=== PATIENT | male | born 1945 | race Caucasian/White ===

== ENCOUNTER → 2022-03-22 | Outpatient (CLI) | payer OTHER | LOC: M SOG 09:17 | PROVIDERS: ATTEND Orthopaedic Surgery Adult Reconstructive Orthopaedic Surgery | DX: M17.0 Bilateral primary osteoarthritis of knee (principal); M25.561 Pain in right knee ==

== ENCOUNTER → 2022-04-12 | Outpatient (CLI) | payer OTHER ==
[~2022-04-12] MED LIST: ATEN100T PO; ATOR1TAB21 PO; B-12100010 PO; ECOT81TA5 PO; IRON27TA2 PO; LISI20TA33 PO; VITA1CAP25 PO
== END ==
LOC: M RAD 17:36
PROVIDERS: ATTEND Orthopaedic Surgery Adult Reconstructive Orthopaedic Surgery
DX: M17.0 Bilateral primary osteoarthritis of knee (principal); M16.11 Unilateral primary osteoarthritis, right hip; M19.071 Primary osteoarthritis, right ankle and foot

== ENCOUNTER 2022-04-14 07:54 | Outpatient (RCR) | payer OTHER ==
[2022-04-27] MEDS ORDERED: LISI20TA33 PO (12:21)
[2022-04-27] MEDS ORDERED: ATEN100T PO (12:21)
[2022-04-27] MEDS ORDERED: ASPI-551 PO (12:21)
[2022-04-27] MEDS ORDERED: NAPR-849 PO (12:21)
[2022-04-27] MEDS ORDERED: SENN18TA PO (12:21)
[2022-04-27] MEDS ORDERED: OXYC-517 PO (12:21)
== END 2022-05-01 ==
LOC: M PT 07:54
PROVIDERS: ATTEND Orthopaedic Surgery Adult Reconstructive Orthopaedic Surgery
DX: M25.561 Pain in right knee (principal)

== ENCOUNTER → 2022-04-21 | Outpatient (CLI) | payer OTHER | LOC: M LABSMTC 09:58 | PROVIDERS: ATTEND Anesthesiology | DX: Z01.818 Encounter for other preprocedural examination (principal); Z11.52 Encounter for screening for COVID-19 ==

== ENCOUNTER 2022-04-26 08:42 | Inpatient (IN) | payer OTHER ==
[~2022-04-26] VITALS: Ht 177.8 cm; Wt 121.9 kg
[~2022-04-26 08:42] MED LIST changes: +PREGABALIN 25 MG CAP (LYRICA) PO ONE
[2022-04-26] MEDS ORDERED: LR 1,000 ML IV SCH ×3 (08:55→16:20)
[2022-04-26] MEDS ORDERED: ROPIVA 125MG/EPINEPH 0.25MG/CLONID 40MCG/KETOR 15MG IN NS 50ML SYRINGE PA ONE (10:00)
[2022-04-26] MEDS ORDERED: NAPROXEN 250 MG TAB PO ONE (10:00)
[2022-04-26] MEDS ORDERED: dexameTHASONE 4 MG/ML 1ML VIAL (J1100 PER 1MG) IV ONE (10:00)
[2022-04-26] MEDS ORDERED: NS 1,000 ML IV ONE (10:00)
[2022-04-26] MEDS ORDERED: ACETAMINOPHEN 500 MG TAB PO ONE (10:00)
[2022-04-26] MEDS ORDERED: TRANEXAMIC ACID 100 MG/ML 10ML VIAL As Ordered ONE ×2 (10:11→10:12)
[2022-04-26] MEDS ORDERED: ceFAZolin SOD 2 GM in IV 1 EA IV ONE (11:00)
[2022-04-26] MEDS ORDERED: ceFAZolin SOD 1 GM in D5W MINI-BAG PLUS 50 ML IV ONE (11:00)
[2022-04-26] MEDS ORDERED: fentaNYL 100 MCG/2 ML INJECTION As Ordered ONE (12:14)
[2022-04-26] MEDS ORDERED: MIDAZOLAM INJ 2MG/2ML VIAL (J2250 PER 1MG) As Ordered ONE (12:14)
[2022-04-26] MEDS ORDERED: propofoL 200 MG/20 ML VIAL As Ordered ONE ×3 (12:19→14:30)
[2022-04-26] MEDS ORDERED: ePHEDrine SULFATE 25 MG/5 ML(5MG/ML) SYRINGE As Ordered ONE (12:19)
[2022-04-26] MEDS ORDERED: ONDANSETRON 4MG 2ML VIAL As Ordered ONE (12:19)
[2022-04-26] MEDS ORDERED: oxyCODONE 5MG TAB PO PRN ×3 (15:05→16:30)
[2022-04-26] MEDS ORDERED: ONDANSETRON 4MG 2ML VIAL IV PRN ×2 (15:05→16:20)
[2022-04-26] MEDS ORDERED: fentaNYL 100 MCG/2 ML INJECTION IV PRN (15:05)
[2022-04-26] MEDS ORDERED: MORPHINE 2 MG/ML 1ML VIAL IV PRN (15:05)
[2022-04-26] MEDS ORDERED: hydrALAZINE 20MG/ML 1ML VIAL (J0360 PER 20MG) As Ordered ONE (15:10)
[2022-04-26] MEDS ORDERED: traMADol 50 MG TAB PO PRN (16:20)
[2022-04-26] MEDS ORDERED: SENNA 8.6 MG TAB (SENOKOT) PO PRN (16:30)
[2022-04-26] MEDS ORDERED: hydrALAZINE 20MG/ML 1ML VIAL (J0360 PER 20MG) IV PRN (17:05)
[2022-04-26] MEDS ORDERED: **hydrALAZINE HCL** 25 MG TAB PO PRN (17:30)
[2022-04-26 17:53] VITALS: BP 172/80
[2022-04-26 18:29] LABS: HEMATOCRIT 44.4 % (42.0-52.0); HEMOGLOBIN 15.5 g/dl (13.5-17.5); MEAN CORPUSCULAR HEMOGLOBIN 33.5 pg (27.0-33.0); MEAN CORPUSCULAR HGB CONC 34.9 g/dl (32.0-36.5); MEAN CORPUSCULAR VOLUME 96.1 fl (80.0-96.0); PLATELET COUNT, AUTOMATED 142 10^3/uL (150-450); RED BLOOD COUNT 4.62 10^6/uL (4.30-6.10); WHITE BLOOD COUNT 4.5 10^3/uL (4.0-10.0)
[2022-04-26 18:31] VITALS: BP 169/76
[2022-04-26] MEDS: ceFAZolin SOD 1 GM in D5W MINI-BAG PLUS 50 ML IV SCH (18:51)
[2022-04-26] MEDS: ACETAMINOPHEN TAB 650MG DOSE (2X325MG) PO SCH (18:51)
[2022-04-26 19:00] VITALS: BP 162/75
[2022-04-26 19:28] LABS: ALBUMIN 3.9 GM/DL (3.2-5.2); ALT/SGPT 23 U/L (12-78); BILIRUBIN,TOTAL 0.6 MG/DL (0.2-1.0); BLOOD UREA NITROGEN 11 MG/DL (7-18); CALCIUM LEVEL 9.8 MG/DL (8.8-10.2); CARBON DIOXIDE LEVEL 22 MEQ/L (21-32); CHLORIDE LEVEL 105 MEQ/L (98-107); CREATININE FOR GFR 1.01 MG/DL (0.70-1.30); GLOMERULAR FILTRATION RATE > 60.0 (>42); GLUCOSE, FASTING 182 MG/DL (70-100); POTASSIUM SERUM 4.3 MEQ/L (3.5-5.1); SODIUM LEVEL 137 MEQ/L (136-145)
[2022-04-26] MEDS: ASPIRIN 81MG ENTERIC TABLET PO SCH (20:08)
[2022-04-26] MEDS: DOCUSATE SODIUM 100MG CAPSULE PO SCH (20:08)
[2022-04-26] MEDS: NAPROXEN 250 MG TAB PO SCH (20:09)
[2022-04-26] MEDS: ceFAZolin SOD 2 GM in IV 1 EA IV SCH (20:10)
[2022-04-26 20:20] VITALS: BP 169/76
[2022-04-26 21:08] VITALS: BP 170/77
[2022-04-26 22:04] VITALS: BP 169/77
[2022-04-27] MEDS: ACETAMINOPHEN TAB 650MG DOSE (2X325MG) PO SCH ×4 (00:27→18:03)
[2022-04-27 02:10] VITALS: BP 151/71
[2022-04-27] MEDS: ceFAZolin SOD 1 GM in D5W MINI-BAG PLUS 50 ML IV SCH (02:47)
[2022-04-27] MEDS: ceFAZolin SOD 2 GM in IV 1 EA IV SCH (03:20)
[2022-04-27 05:49] VITALS: BP 155/72
[2022-04-27] MEDS ORDERED: ceFAZolin SOD 2 GM in IV 1 EA IV ONE (06:00)
[2022-04-27 06:27] LABS: HEMATOCRIT 40.3 % (42.0-52.0); MEAN CORPUSCULAR HEMOGLOBIN 33.3 pg (27.0-33.0); MEAN CORPUSCULAR HGB CONC 34.7 g/dl (32.0-36.5); PLATELET COUNT, AUTOMATED 160 10^3/uL (150-450); WHITE BLOOD COUNT 9.8 10^3/uL (4.0-10.0)
[2022-04-27 06:45] LABS: ALBUMIN 3.5 GM/DL (3.2-5.2); ALT/SGPT 16 U/L (12-78); BILIRUBIN,TOTAL 0.5 MG/DL (0.2-1.0); BLOOD UREA NITROGEN 13 MG/DL (7-18); CALCIUM LEVEL 9.6 MG/DL (8.8-10.2); CARBON DIOXIDE LEVEL 25 MEQ/L (21-32); CHLORIDE LEVEL 105 MEQ/L (98-107); CREATININE FOR GFR 0.96 MG/DL (0.70-1.30); GLOMERULAR FILTRATION RATE > 60.0 (>42); GLUCOSE, FASTING 122 MG/DL (70-100); MAGNESIUM LEVEL 2.3 MG/DL (1.8-2.4); POTASSIUM SERUM 4.3 MEQ/L (3.5-5.1); SODIUM LEVEL 138 MEQ/L (136-145); TOTAL PROTEIN 5.9 GM/DL (6.4-8.2)
[2022-04-27] MEDS ORDERED: atenoloL 25 MG TAB PO SCH (09:00)
[2022-04-27] MEDS: DOCUSATE SODIUM 100MG CAPSULE PO SCH ×2 (09:00→20:15)
[2022-04-27] MEDS ORDERED: lisinopriL 5 MG TAB PO SCH (09:00)
[2022-04-27] MEDS ORDERED: ATORVASTATIN 10 MG TAB PO SCH (09:00)
[2022-04-27] MEDS: ENOXAPARIN 40MG/0.4ML SYRINGE (J1650 PER 10MG) SC SCH (09:26)
[2022-04-27] MEDS: ATORVASTATIN 20 MG TAB PO SCH (09:26)
[2022-04-27] MEDS: ASPIRIN 81MG ENTERIC TABLET PO SCH ×2 (09:27→20:14)
[2022-04-27] MEDS: ASCORBIC ACID 500 MG TAB PO SCH (09:27)
[2022-04-27] MEDS: NAPROXEN 250 MG TAB PO SCH ×2 (09:28→20:15)
[2022-04-27] MEDS: atenoloL 50 MG TAB PO SCH (09:31)
[2022-04-27] MEDS: FERROUS SULFATE 325MG TAB PO SCH (09:32)
[2022-04-27 10:00] VITALS: BP 133/59
[2022-04-27] MEDS ORDERED: ATEN100T PO (12:21)
[2022-04-27] MEDS ORDERED: OXYC-517 PO (12:21)
[2022-04-27] MEDS ORDERED: LISI20TA33 PO (12:21)
[2022-04-27] MEDS ORDERED: ASPI-551 PO (12:21)
[2022-04-27] MEDS ORDERED: NAPR-849 PO (12:21)
[2022-04-27] MEDS ORDERED: SENN18TA PO (12:21)
[2022-04-27 14:00] VITALS: BP 132/78
[2022-04-27 22:00] VITALS: BP 120/61
[2022-04-28] MEDS: ACETAMINOPHEN TAB 650MG DOSE (2X325MG) PO SCH ×2 (00:13→06:31)
[2022-04-28 06:00] VITALS: BP 187/87
[2022-04-28] MEDS: ATORVASTATIN 20 MG TAB PO SCH (08:03)
[2022-04-28] MEDS: ASPIRIN 81MG ENTERIC TABLET PO SCH (08:03)
[2022-04-28] MEDS: FERROUS SULFATE 325MG TAB PO SCH (08:04)
[2022-04-28] MEDS: NAPROXEN 250 MG TAB PO SCH (08:04)
[2022-04-28 08:05] VITALS: BP 187/87
[2022-04-28] MEDS: atenoloL 50 MG TAB PO SCH (08:05)
[2022-04-28] MEDS: ASCORBIC ACID 500 MG TAB PO SCH (08:05)
[2022-04-28] MEDS: ENOXAPARIN 40MG/0.4ML SYRINGE (J1650 PER 10MG) SC SCH (08:06)
[2022-04-28] MEDS: DOCUSATE SODIUM 100MG CAPSULE PO SCH (08:06)
== END 2022-04-28 11:00 | disposition home health service (06) | DRG 983 ==
LOC: M SDC 08:42 → M MS5PR 17:14 → M SDC 04-28 11:00
PROVIDERS: ADMIT Family Medicine; ATTEND Family Medicine
PROC: 0LQQ0ZZ Repair Right Knee Tendon, Open Approach (ICD-10-PCS; 2022-04-26)
PROC: 0SBC0ZZ Excision of Right Knee Joint, Open Approach (ICD-10-PCS; 2022-04-26)
PROC: 8E0Y0CZ Robotic Assisted Procedure of Lower Extremity, Open Approach (ICD-10-PCS; 2022-04-26)
PROC: 0SRC0JA Replacement of Right Knee Joint with Synthetic Substitute, Uncemented, Open Approach (ICD-10-PCS; principal; 2022-04-26 10:35)
DX: I16.0 Hypertensive urgency (principal); M17.11 Unilateral primary osteoarthritis, right knee; E78.5 Hyperlipidemia, unspecified; I10 Essential (primary) hypertension; M25.761 Osteophyte, right knee; J30.9 Allergic rhinitis, unspecified; Z96.651 Presence of right artificial knee joint; Z96.649 Presence of unspecified artificial hip joint; Z79.82 Long term (current) use of aspirin; Z79.899 Other long term (current) drug therapy

== ENCOUNTER 2022-05-03 10:45 | Inpatient (IN) | payer MEDICARE, OTHER ==
[~2022-05-03] VITALS: Ht 177.8 cm; Wt 118.1 kg
[~2022-05-03 10:45] MED LIST changes: +ASPI-551 PO; +NAPR-849 PO; +OXYC-517 PO; -PREGABALIN 25 MG CAP (LYRICA) PO ONE; +SENN18TA PO
[2022-05-03] MEDS ORDERED: ACE65ERTAB PO (11:01)
[2022-05-03 13:30] LABS: BASO % 0.3 % (0.0-1.0); EOS # 0.1 10^3/uL (0.0-0.5); EOS % 1.1 % (0.0-3.0); HEMATOCRIT 34.3 % (42.0-52.0); HEMOGLOBIN 11.3 g/dl (13.5-17.5); LYMPH # 1.3 10^3/uL (1.5-5.0); LYMPH % 17.6 % (24.0-44.0); MEAN CORPUSCULAR HEMOGLOBIN 33.3 pg (27.0-33.0); MEAN CORPUSCULAR HGB CONC 32.9 g/dl (32.0-36.5); MEAN CORPUSCULAR VOLUME 101.2 fl (80.0-96.0); MONO # 0.8 10^3/uL (0.0-0.8); MONO % 11.3 % (2.0-8.0); NEUTROPHILS # 5.2 10^3/uL (1.5-8.5); PLATELET COUNT, AUTOMATED 181 10^3/uL (150-450); RED BLOOD COUNT 3.39 10^6/uL (4.30-6.10); WHITE BLOOD COUNT 7.5 10^3/uL (4.0-10.0)
[2022-05-03 14:02] LABS: BLOOD UREA NITROGEN 11 MG/DL (7-18); CALCIUM LEVEL 10.1 MG/DL (8.8-10.2); CARBON DIOXIDE LEVEL 22 MEQ/L (21-32); CHLORIDE LEVEL 110 MEQ/L (98-107); CREATININE FOR GFR 0.76 MG/DL (0.70-1.30); GLOMERULAR FILTRATION RATE > 60.0 (>42); GLUCOSE, FASTING 89 MG/DL (70-100); NT-PRO BNP 1735 PG/ML (<450); SODIUM LEVEL 141 MEQ/L (136-145)
[2022-05-03 14:13] LABS: RSV AMPLIFICATION NEGATIVE (NEGATIVE)
[2022-05-03] MEDS ORDERED: LIDOCAINE 2% 5ML JELLY UROJET TOP ONE (14:40)
[2022-05-03] MEDS ORDERED: cefTRIAXone SOD 1 GM in D5W MINI-BAG PLUS 50 ML IV ONE (15:00)
[2022-05-03] MEDS ORDERED: VANCOMYCIN HCL 1,000 MG, VIAL MATE ADAPTER 1 EACH in NS 250 ML IV SCH (16:25)
[2022-05-03] MEDS ORDERED: MOM 30ML SUSPENSION UDC PO PRN (16:25)
[2022-05-03] MEDS ORDERED: MAALOX 30 ML SUSP *UDC PO PRN (16:25)
[2022-05-03] MEDS ORDERED: ACET-897 PO (16:53)
[2022-05-03] MEDS ORDERED: ASPI-226 PO (16:57)
[2022-05-03] MEDS ORDERED: CHOL125C6 PO (16:57)
[2022-05-03] MEDS ORDERED: HOME MED LIST COMPLETE! XX SCH (17:00)
[2022-05-03] MEDS ORDERED: VANCOMYCIN HCL 1,000 MG, VIAL MATE ADAPTER 1 EACH in NS 250 ML IV ONE ×2 (21:00→22:00)
[2022-05-03 22:03] VITALS: BP 198/86
[2022-05-03] MEDS ORDERED: **hydrALAZINE** 50 MG TAB PO ONE (23:10)
[2022-05-03] MEDS ORDERED: hydrOXYzine 50 MG TAB PO ONE (23:15)
[2022-05-04 00:37] VITALS: BP 178/70
[2022-05-04 06:00] VITALS: BP 154/60
[2022-05-04 06:06] LABS: BASO % 0.3 % (0.0-1.0); EOS # 0.1 10^3/uL (0.0-0.5); EOS % 1.9 % (0.0-3.0); HEMATOCRIT 31.6 % (42.0-52.0); HEMOGLOBIN 10.5 g/dl (13.5-17.5); LYMPH # 1.3 10^3/uL (1.5-5.0); LYMPH % 21.3 % (24.0-44.0); MEAN CORPUSCULAR HEMOGLOBIN 32.9 pg (27.0-33.0); MEAN CORPUSCULAR HGB CONC 33.2 g/dl (32.0-36.5); MEAN CORPUSCULAR VOLUME 99.1 fl (80.0-96.0); MONO # 0.7 10^3/uL (0.0-0.8); MONO % 11.1 % (2.0-8.0); NEUTROPHILS % 64.9 % (36.0-66.0); PLATELET COUNT, AUTOMATED 212 10^3/uL (150-450); RED BLOOD COUNT 3.19 10^6/uL (4.30-6.10); WHITE BLOOD COUNT 6.2 10^3/uL (4.0-10.0)
[2022-05-04 06:35] LABS: ERYTHROCYTE SEDIMENTATION RATE 70 mm/hr (0-20)
[2022-05-04 06:44] LABS: ALBUMIN 2.8 GM/DL (3.2-5.2); ALT/SGPT 18 U/L (12-78); BILIRUBIN,TOTAL 1.5 MG/DL (0.2-1.0); BLOOD UREA NITROGEN 11 MG/DL (7-18); CALCIUM LEVEL 9.4 MG/DL (8.8-10.2); CARBON DIOXIDE LEVEL 27 MEQ/L (21-32); CHLORIDE LEVEL 105 MEQ/L (98-107); GLOMERULAR FILTRATION RATE > 60.0 (>42); GLUCOSE, FASTING 102 MG/DL (70-100); MAGNESIUM LEVEL 2.2 MG/DL (1.8-2.4); SODIUM LEVEL 137 MEQ/L (136-145); TOTAL PROTEIN 6.3 GM/DL (6.4-8.2)
[2022-05-04] MEDS: VANCOMYCIN HCL 750 MG, VIAL MATE ADAPTER 1 EACH in D5W 250 ML IV SCH ×4 (09:15→22:58)
[2022-05-04] MEDS: ASPIRIN 81MG ENTERIC TABLET PO SCH (09:17)
[2022-05-04] MEDS: ATORVASTATIN 20 MG TAB PO SCH (09:17)
[2022-05-04] MEDS: atenoloL 50 MG TAB PO SCH (09:18)
[2022-05-04] MEDS: ENOXAPARIN 40MG/0.4ML SYRINGE (J1650 PER 10MG) SC SCH (09:20)
[2022-05-04] MEDS: ACETAMINOPHEN TAB 650MG DOSE (2X325MG) PO PRN ×2 (09:20→21:25)
[2022-05-04 12:00] VITALS: BP 141/63
[2022-05-04] MEDS: cefTRIAXone SOD 1 GM in D5W MINI-BAG PLUS 50 ML IV SCH (15:23)
[2022-05-04 20:00] VITALS: BP 159/72
[2022-05-05] MEDS ORDERED: PINK BISMUTH SUSP 524MG/30ML ORAL SYRINGE PO ONE (03:00)
[2022-05-05 04:00] VITALS: BP 161/70
[2022-05-05 06:21] LABS: BASO % 0.3 % (0.0-1.0); EOS # 0.1 10^3/uL (0.0-0.5); EOS % 1.8 % (0.0-3.0); HEMATOCRIT 30.6 % (42.0-52.0); HEMOGLOBIN 10.3 g/dl (13.5-17.5); LYMPH # 1.6 10^3/uL (1.5-5.0); LYMPH % 22.3 % (24.0-44.0); MEAN CORPUSCULAR HEMOGLOBIN 32.9 pg (27.0-33.0); MEAN CORPUSCULAR HGB CONC 33.7 g/dl (32.0-36.5); MEAN CORPUSCULAR VOLUME 97.8 fl (80.0-96.0); MONO # 0.6 10^3/uL (0.0-0.8); MONO % 8.2 % (2.0-8.0); NEUTROPHILS # 4.8 10^3/uL (1.5-8.5); NEUTROPHILS % 66.8 % (36.0-66.0); PLATELET COUNT, AUTOMATED 217 10^3/uL (150-450); RED BLOOD COUNT 3.13 10^6/uL (4.30-6.10); WHITE BLOOD COUNT 7.2 10^3/uL (4.0-10.0)
[2022-05-05 06:59] LABS: ALBUMIN 2.8 GM/DL (3.2-5.2); ALT/SGPT 17 U/L (12-78); BILIRUBIN,TOTAL 1.3 MG/DL (0.2-1.0); BLOOD UREA NITROGEN 12 MG/DL (7-18); C REACTIVE PROTEIN QUANTITATIV 9.11 MG/DL (0.00-0.30); CALCIUM LEVEL 9.4 MG/DL (8.8-10.2); CARBON DIOXIDE LEVEL 26 MEQ/L (21-32); CHLORIDE LEVEL 105 MEQ/L (98-107); GLOMERULAR FILTRATION RATE > 60.0 (>42); GLUCOSE, FASTING 96 MG/DL (70-100); MAGNESIUM LEVEL 2.3 MG/DL (1.8-2.4); POTASSIUM SERUM 3.6 MEQ/L (3.5-5.1); SODIUM LEVEL 135 MEQ/L (136-145); TOTAL PROTEIN 6.1 GM/DL (6.4-8.2)
[2022-05-05 09:44] LABS: ERYTHROCYTE SEDIMENTATION RATE 68 mm/hr (0-20)
[2022-05-05] MEDS: ENOXAPARIN 40MG/0.4ML SYRINGE (J1650 PER 10MG) SC SCH (10:04)
[2022-05-05] MEDS: VANCOMYCIN HCL 750 MG, VIAL MATE ADAPTER 1 EACH in D5W 250 ML IV SCH ×2 (10:04→10:05)
[2022-05-05] MEDS: LACTOBACILLUS ACIDOPHILUS CAP (BACID) PO SCH (10:06)
[2022-05-05] MEDS: atenoloL 50 MG TAB PO SCH (10:06)
[2022-05-05] MEDS: ASPIRIN 81MG ENTERIC TABLET PO SCH (10:07)
[2022-05-05] MEDS: ATORVASTATIN 20 MG TAB PO SCH (10:07)
[2022-05-05 12:00] VITALS: BP 181/81
[2022-05-05] MEDS: **hydrALAZINE HCL** 25 MG TAB PO PRN (12:30)
[2022-05-05] MEDS ORDERED: LOPERAMIDE 2 MG CAPLET PO PRN (12:40)
[2022-05-05] MEDS ORDERED: diphenhydrAMINE 25MG CAP PO ONE (12:45)
[2022-05-05] MEDS: HYDROCORTISONE 1% OINTMENT 30GM TOP SCH ×2 (13:18→21:14)
[2022-05-05] MEDS: DOXYCYCLINE HYCLATE 100MG TABLET PO SCH ×2 (13:19→21:14)
[2022-05-05] MEDS: NS 1,000 ML IV SCH ×2 (13:23→22:58)
[2022-05-05 13:59] VITALS: BP 171/72
[2022-05-05] MEDS: cefTRIAXone SOD 1 GM in D5W MINI-BAG PLUS 50 ML IV SCH (15:21)
[2022-05-05 18:20] VITALS: BP 158/67
[2022-05-05 20:00] VITALS: BP 153/67
[2022-05-06 04:00] VITALS: BP 168/72
[2022-05-06] MEDS: **hydrALAZINE HCL** 25 MG TAB PO PRN ×2 (05:31→22:14)
[2022-05-06 06:41] LABS: BASO % 0.2 % (0.0-1.0); EOS # 0.1 10^3/uL (0.0-0.5); EOS % 2.5 % (0.0-3.0); HEMATOCRIT 31.8 % (42.0-52.0); HEMOGLOBIN 10.1 g/dl (13.5-17.5); LYMPH # 1.6 10^3/uL (1.5-5.0); LYMPH % 30.7 % (24.0-44.0); MEAN CORPUSCULAR HEMOGLOBIN 31.8 pg (27.0-33.0); MEAN CORPUSCULAR HGB CONC 31.8 g/dl (32.0-36.5); MONO # 0.5 10^3/uL (0.0-0.8); MONO % 9.5 % (2.0-8.0); NEUTROPHILS % 56.3 % (36.0-66.0); PLATELET COUNT, AUTOMATED 232 10^3/uL (150-450); RED BLOOD COUNT 3.18 10^6/uL (4.30-6.10); WHITE BLOOD COUNT 5.3 10^3/uL (4.0-10.0)
[2022-05-06 07:21] LABS: ALBUMIN 2.8 GM/DL (3.2-5.2); ALT/SGPT 15 U/L (12-78); BILIRUBIN,TOTAL 1.2 MG/DL (0.2-1.0); BLOOD UREA NITROGEN 11 MG/DL (7-18); C REACTIVE PROTEIN QUANTITATIV 7.78 MG/DL (0.00-0.30); CALCIUM LEVEL 8.9 MG/DL (8.8-10.2); CARBON DIOXIDE LEVEL 26 MEQ/L (21-32); CHLORIDE LEVEL 107 MEQ/L (98-107); CREATININE FOR GFR 0.76 MG/DL (0.70-1.30); GLOMERULAR FILTRATION RATE > 60.0 (>42); GLUCOSE, FASTING 87 MG/DL (70-100); MAGNESIUM LEVEL 2.2 MG/DL (1.8-2.4); POTASSIUM SERUM 3.9 MEQ/L (3.5-5.1); SODIUM LEVEL 140 MEQ/L (136-145); TOTAL PROTEIN 5.5 GM/DL (6.4-8.2)
[2022-05-06 07:35] LABS: ERYTHROCYTE SEDIMENTATION RATE 73 mm/hr (0-20)
[2022-05-06] MEDS: HYDROCORTISONE 1% OINTMENT 30GM TOP SCH ×2 (10:00→21:18)
[2022-05-06] MEDS: NS 1,000 ML IV SCH ×2 (10:00→16:58)
[2022-05-06] MEDS: ENOXAPARIN 40MG/0.4ML SYRINGE (J1650 PER 10MG) SC SCH (10:00)
[2022-05-06] MEDS: LACTOBACILLUS ACIDOPHILUS CAP (BACID) PO SCH (10:01)
[2022-05-06] MEDS: ASPIRIN 81MG ENTERIC TABLET PO SCH (10:01)
[2022-05-06] MEDS: ATORVASTATIN 20 MG TAB PO SCH (10:03)
[2022-05-06] MEDS: atenoloL 50 MG TAB PO SCH (10:03)
[2022-05-06] MEDS: DOXYCYCLINE HYCLATE 100MG TABLET PO SCH ×2 (10:03→21:18)
[2022-05-06 12:00] VITALS: BP 158/71
[2022-05-06] MEDS ORDERED: LOMOTIL 2.5MG/0.025MG TABLET PO PRN (12:15)
[2022-05-06] MEDS: NITAZOXANIDE 500 MG TAB (ALINIA) PO SCH ×2 (13:18→21:18)
[2022-05-06] MEDS: cefTRIAXone SOD 1 GM in D5W MINI-BAG PLUS 50 ML IV SCH (14:48)
[2022-05-06] MEDS: TAMSULOSIN 0.4 MG CAP PO SCH (14:48)
[2022-05-06] MEDS: diphenhydrAMINE CREAM 30GM TOP PRN ×2 (17:03→19:54)
[2022-05-06 20:00] VITALS: BP_SYST 184; BP_SYST 214; BP_DIAS 86
[2022-05-06 21:00] VITALS: BP 166/76
[2022-05-06 23:10] VITALS: BP 160/84
[2022-05-06] MEDS: ACETAMINOPHEN TAB 650MG DOSE (2X325MG) PO PRN (23:34)
[2022-05-07] MEDS: NS 1,000 ML IV SCH ×3 (03:33→23:24)
[2022-05-07 04:00] VITALS: BP 196/86
[2022-05-07 06:50] VITALS: BP 162/86
[2022-05-07 07:12] LABS: BASO % 0.2 % (0.0-1.0); EOS # 0.1 10^3/uL (0.0-0.5); EOS % 2.2 % (0.0-3.0); HEMATOCRIT 29.7 % (42.0-52.0); HEMOGLOBIN 9.6 g/dl (13.5-17.5); LYMPH # 1.3 10^3/uL (1.5-5.0); LYMPH % 23.9 % (24.0-44.0); MEAN CORPUSCULAR HGB CONC 32.3 g/dl (32.0-36.5); MONO # 0.5 10^3/uL (0.0-0.8); MONO % 9.1 % (2.0-8.0); NEUTROPHILS # 3.4 10^3/uL (1.5-8.5); NEUTROPHILS % 63.9 % (36.0-66.0); PLATELET COUNT, AUTOMATED 217 10^3/uL (150-450); WHITE BLOOD COUNT 5.4 10^3/uL (4.0-10.0)
[2022-05-07 07:41] LABS: ERYTHROCYTE SEDIMENTATION RATE 73 mm/hr (0-20)
[2022-05-07 07:43] LABS: ALBUMIN 2.6 GM/DL (3.2-5.2); ALT/SGPT 14 U/L (12-78); BLOOD UREA NITROGEN 10 MG/DL (7-18); C REACTIVE PROTEIN QUANTITATIV 5.46 MG/DL (0.00-0.30); CALCIUM LEVEL 9.1 MG/DL (8.8-10.2); CARBON DIOXIDE LEVEL 25 MEQ/L (21-32); CHLORIDE LEVEL 108 MEQ/L (98-107); CREATININE FOR GFR 0.66 MG/DL (0.70-1.30); GLOMERULAR FILTRATION RATE > 60.0 (>42); GLUCOSE, FASTING 99 MG/DL (70-100); MAGNESIUM LEVEL 2.2 MG/DL (1.8-2.4); POTASSIUM SERUM 3.5 MEQ/L (3.5-5.1); SODIUM LEVEL 138 MEQ/L (136-145); TOTAL PROTEIN 5.7 GM/DL (6.4-8.2)
[2022-05-07] MEDS: NITAZOXANIDE 500 MG TAB (ALINIA) PO SCH ×2 (09:27→20:32)
[2022-05-07] MEDS: LACTOBACILLUS ACIDOPHILUS CAP (BACID) PO SCH (09:28)
[2022-05-07] MEDS: ASPIRIN 81MG ENTERIC TABLET PO SCH (09:28)
[2022-05-07] MEDS: TAMSULOSIN 0.4 MG CAP PO SCH (09:28)
[2022-05-07] MEDS: CHLORTHALIDONE 25 MG TAB PO SCH (09:29)
[2022-05-07] MEDS: ATORVASTATIN 20 MG TAB PO SCH (09:29)
[2022-05-07] MEDS: atenoloL 50 MG TAB PO SCH (09:32)
[2022-05-07] MEDS: DOXYCYCLINE HYCLATE 100MG TABLET PO SCH ×2 (09:32→20:32)
[2022-05-07] MEDS: ENOXAPARIN 40MG/0.4ML SYRINGE (J1650 PER 10MG) SC SCH (09:33)
[2022-05-07] MEDS: HYDROCORTISONE 1% OINTMENT 30GM TOP SCH ×2 (09:33→20:33)
[2022-05-07 12:00] VITALS: BP 137/63
[2022-05-07] MEDS: cefTRIAXone SOD 1 GM in D5W MINI-BAG PLUS 50 ML IV SCH (15:11)
[2022-05-07 20:00] VITALS: BP 157/70
[2022-05-08 04:00] VITALS: BP 175/74
[2022-05-08] MEDS: **hydrALAZINE HCL** 25 MG TAB PO PRN (05:16)
[2022-05-08 06:13] VITALS: BP 174/74
[2022-05-08 07:26] LABS: BASO % 0.3 % (0.0-1.0); EOS # 0.1 10^3/uL (0.0-0.5); EOS % 2.2 % (0.0-3.0); HEMATOCRIT 31.9 % (42.0-52.0); HEMOGLOBIN 10.4 g/dl (13.5-17.5); LYMPH # 1.3 10^3/uL (1.5-5.0); LYMPH % 21.9 % (24.0-44.0); MEAN CORPUSCULAR HEMOGLOBIN 31.7 pg (27.0-33.0); MEAN CORPUSCULAR HGB CONC 32.6 g/dl (32.0-36.5); MEAN CORPUSCULAR VOLUME 97.3 fl (80.0-96.0); MONO # 0.5 10^3/uL (0.0-0.8); MONO % 8.1 % (2.0-8.0); PLATELET COUNT, AUTOMATED 233 10^3/uL (150-450); RED BLOOD COUNT 3.28 10^6/uL (4.30-6.10); WHITE BLOOD COUNT 5.9 10^3/uL (4.0-10.0)
[2022-05-08 08:10] LABS: ALBUMIN 2.9 GM/DL (3.2-5.2); ALT/SGPT 15 U/L (12-78); BILIRUBIN,TOTAL 0.9 MG/DL (0.2-1.0); BLOOD UREA NITROGEN 8 MG/DL (7-18); CALCIUM LEVEL 9.3 MG/DL (8.8-10.2); CARBON DIOXIDE LEVEL 26 MEQ/L (21-32); CHLORIDE LEVEL 107 MEQ/L (98-107); CREATININE FOR GFR 0.67 MG/DL (0.70-1.30); GLOMERULAR FILTRATION RATE > 60.0 (>42); GLUCOSE, FASTING 101 MG/DL (70-100); MAGNESIUM LEVEL 2.2 MG/DL (1.8-2.4); POTASSIUM SERUM 3.9 MEQ/L (3.5-5.1); SODIUM LEVEL 139 MEQ/L (136-145); TOTAL PROTEIN 5.4 GM/DL (6.4-8.2)
[2022-05-08] MEDS: LACTOBACILLUS ACIDOPHILUS CAP (BACID) PO SCH (09:43)
[2022-05-08] MEDS: ASPIRIN 81MG ENTERIC TABLET PO SCH (09:43)
[2022-05-08] MEDS: ATORVASTATIN 20 MG TAB PO SCH (09:43)
[2022-05-08] MEDS: DOXYCYCLINE HYCLATE 100MG TABLET PO SCH ×2 (09:43→21:15)
[2022-05-08] MEDS: atenoloL 50 MG TAB PO SCH (09:43)
[2022-05-08] MEDS: NITAZOXANIDE 500 MG TAB (ALINIA) PO SCH ×2 (09:43→21:15)
[2022-05-08] MEDS: TAMSULOSIN 0.4 MG CAP PO SCH (09:43)
[2022-05-08] MEDS: CHLORTHALIDONE 25 MG TAB PO SCH (09:43)
[2022-05-08] MEDS: NS 1,000 ML IV SCH ×2 (09:44→21:15)
[2022-05-08] MEDS: ENOXAPARIN 40MG/0.4ML SYRINGE (J1650 PER 10MG) SC SCH (09:44)
[2022-05-08] MEDS: HYDROCORTISONE 1% OINTMENT 30GM TOP SCH ×2 (09:45→21:15)
[2022-05-08 12:02] VITALS: BP 158/70
[2022-05-08] MEDS: LOPERAMIDE 2 MG CAPLET PO PRN (15:56)
[2022-05-08] MEDS: cefTRIAXone SOD 1 GM in D5W MINI-BAG PLUS 50 ML IV SCH (15:56)
[2022-05-08 20:00] VITALS: BP 162/76
[2022-05-08] MEDS: CEFDINIR 300 MG CAP (OMNICEF) PO SCH (21:15)
[2022-05-09 04:00] VITALS: BP 162/96
[2022-05-09 06:24] LABS: BASO % 0.2 % (0.0-1.0); EOS # 0.1 10^3/uL (0.0-0.5); HEMOGLOBIN 10.3 g/dl (13.5-17.5); LYMPH % 18.6 % (24.0-44.0); MEAN CORPUSCULAR HEMOGLOBIN 31.2 pg (27.0-33.0); MEAN CORPUSCULAR HGB CONC 32.2 g/dl (32.0-36.5); MONO # 0.4 10^3/uL (0.0-0.8); MONO % 7.7 % (2.0-8.0); NEUTROPHILS % 70.4 % (36.0-66.0); PLATELET COUNT, AUTOMATED 247 10^3/uL (150-450); WHITE BLOOD COUNT 5.6 10^3/uL (4.0-10.0)
[2022-05-09 07:08] LABS: ALBUMIN 2.9 GM/DL (3.2-5.2); ALT/SGPT 17 U/L (12-78); BLOOD UREA NITROGEN 9 MG/DL (7-18); CALCIUM LEVEL 9.7 MG/DL (8.8-10.2); CARBON DIOXIDE LEVEL 26 MEQ/L (21-32); CHLORIDE LEVEL 105 MEQ/L (98-107); CREATININE FOR GFR 0.71 MG/DL (0.70-1.30); GLOMERULAR FILTRATION RATE > 60.0 (>42); GLUCOSE, FASTING 99 MG/DL (70-100); MAGNESIUM LEVEL 2.2 MG/DL (1.8-2.4); POTASSIUM SERUM 3.2 MEQ/L (3.5-5.1); SODIUM LEVEL 137 MEQ/L (136-145)
[2022-05-09] MEDS: LACTOBACILLUS ACIDOPHILUS CAP (BACID) PO SCH (07:42)
[2022-05-09] MEDS: CEFDINIR 300 MG CAP (OMNICEF) PO SCH ×2 (07:42→22:45)
[2022-05-09] MEDS: ASPIRIN 81MG ENTERIC TABLET PO SCH (07:42)
[2022-05-09] MEDS: ACETAMINOPHEN TAB 650MG DOSE (2X325MG) PO PRN (07:42)
[2022-05-09] MEDS: NS 1,000 ML IV SCH (07:43)
[2022-05-09] MEDS: DOXYCYCLINE HYCLATE 100MG TABLET PO SCH ×2 (07:43→22:45)
[2022-05-09] MEDS: CHLORTHALIDONE 25 MG TAB PO SCH (07:43)
[2022-05-09] MEDS: TAMSULOSIN 0.4 MG CAP PO SCH (07:43)
[2022-05-09] MEDS: ATORVASTATIN 20 MG TAB PO SCH (07:43)
[2022-05-09] MEDS: ENOXAPARIN 40MG/0.4ML SYRINGE (J1650 PER 10MG) SC SCH (07:43)
[2022-05-09] MEDS: HYDROCORTISONE 1% OINTMENT 30GM TOP SCH ×2 (07:45→22:45)
[2022-05-09] MEDS: POTASSIUM CHLORIDE 10MEQ SR TABLET PO SCH (11:13)
[2022-05-09] MEDS: atenoloL 50 MG TAB PO SCH (11:14)
[2022-05-09] MEDS ORDERED: POTASSIUM CHLORIDE 10MEQ SR TABLET PO ONE (12:00)
[2022-05-09 14:01] VITALS: BP 160/71
[2022-05-09 20:00] VITALS: BP 142/58
[2022-05-10 03:35] VITALS: BP 146/78
[2022-05-10] MEDS: LOPERAMIDE 2 MG CAPLET PO PRN (04:23)
[2022-05-10 05:59] LABS: BASO % 0.7 % (0.0-1.0); EOS # 0.1 10^3/uL (0.0-0.5); EOS % 1.9 % (0.0-3.0); HEMATOCRIT 32.5 % (42.0-52.0); HEMOGLOBIN 10.9 g/dl (13.5-17.5); LYMPH # 1.2 10^3/uL (1.5-5.0); LYMPH % 20.8 % (24.0-44.0); MEAN CORPUSCULAR HEMOGLOBIN 32.7 pg (27.0-33.0); MEAN CORPUSCULAR HGB CONC 33.5 g/dl (32.0-36.5); MEAN CORPUSCULAR VOLUME 97.6 fl (80.0-96.0); MONO # 0.6 10^3/uL (0.0-0.8); MONO % 10.8 % (2.0-8.0); NEUTROPHILS # 3.9 10^3/uL (1.5-8.5); NEUTROPHILS % 65.1 % (36.0-66.0); PLATELET COUNT, AUTOMATED 260 10^3/uL (150-450); RED BLOOD COUNT 3.33 10^6/uL (4.30-6.10); WHITE BLOOD COUNT 5.9 10^3/uL (4.0-10.0)
[2022-05-10 06:42] LABS: ALBUMIN 3.1 GM/DL (3.2-5.2); ALT/SGPT 25 U/L (12-78); BLOOD UREA NITROGEN 12 MG/DL (7-18); CALCIUM LEVEL 10.3 MG/DL (8.8-10.2); CARBON DIOXIDE LEVEL 25 MEQ/L (21-32); CHLORIDE LEVEL 106 MEQ/L (98-107); GLOMERULAR FILTRATION RATE > 60.0 (>42); GLUCOSE, FASTING 97 MG/DL (70-100); POTASSIUM SERUM 4.1 MEQ/L (3.5-5.1); SODIUM LEVEL 137 MEQ/L (136-145); TOTAL PROTEIN 6.5 GM/DL (6.4-8.2)
[2022-05-10] MEDS: ASPIRIN 81MG ENTERIC TABLET PO SCH (08:47)
[2022-05-10] MEDS: CEFDINIR 300 MG CAP (OMNICEF) PO SCH (08:47)
[2022-05-10] MEDS: LACTOBACILLUS ACIDOPHILUS CAP (BACID) PO SCH (08:48)
[2022-05-10] MEDS: ENOXAPARIN 40MG/0.4ML SYRINGE (J1650 PER 10MG) SC SCH (08:48)
[2022-05-10] MEDS: ATORVASTATIN 20 MG TAB PO SCH (08:48)
[2022-05-10] MEDS: TAMSULOSIN 0.4 MG CAP PO SCH (08:48)
[2022-05-10] MEDS: CHLORTHALIDONE 25 MG TAB PO SCH (08:48)
[2022-05-10] MEDS: DOXYCYCLINE HYCLATE 100MG TABLET PO SCH ×2 (08:48→20:54)
[2022-05-10] MEDS: POTASSIUM CHLORIDE 10MEQ SR TABLET PO SCH (08:48)
[2022-05-10] MEDS: HYDROCORTISONE 1% OINTMENT 30GM TOP SCH ×2 (08:49→20:54)
[2022-05-10] MEDS: atenoloL 50 MG TAB PO SCH (08:52)
[2022-05-10 12:00] VITALS: BP 155/68
[2022-05-10 16:45] VITALS: BP 161/75
[2022-05-10] MEDS ORDERED: CEFD300CAP PO (18:34)
[2022-05-10] MEDS ORDERED: LOPE2CA PO (18:34)
[2022-05-10] MEDS ORDERED: DOXY100T PO (18:34)
[2022-05-10] MEDS ORDERED: FLOM0.4C39 PO (18:34)
[2022-05-10] MEDS ORDERED: HYDR1OIN12 TOP (18:35)
[2022-05-10 22:00] VITALS: BP 138/61
[2022-05-11 06:00] VITALS: BP 158/65
[2022-05-11] MEDS: POTASSIUM CHLORIDE 10MEQ SR TABLET PO SCH (08:17)
[2022-05-11] MEDS: ATORVASTATIN 20 MG TAB PO SCH (08:17)
[2022-05-11] MEDS: atenoloL 50 MG TAB PO SCH (08:18)
[2022-05-11] MEDS: LACTOBACILLUS ACIDOPHILUS CAP (BACID) PO SCH (08:18)
[2022-05-11] MEDS: DOXYCYCLINE HYCLATE 100MG TABLET PO SCH ×2 (08:18→21:26)
[2022-05-11] MEDS: CHLORTHALIDONE 25 MG TAB PO SCH (08:18)
[2022-05-11] MEDS: TAMSULOSIN 0.4 MG CAP PO SCH (08:18)
[2022-05-11] MEDS: ASPIRIN 81MG ENTERIC TABLET PO SCH (08:19)
[2022-05-11] MEDS: ENOXAPARIN 40MG/0.4ML SYRINGE (J1650 PER 10MG) SC SCH (08:19)
[2022-05-11] MEDS: HYDROCORTISONE 1% OINTMENT 30GM TOP SCH ×2 (08:19→21:26)
[2022-05-11 08:49] LABS: HEMATOCRIT 34.5 % (42.0-52.0); HEMOGLOBIN 11.4 g/dl (13.5-17.5); MEAN CORPUSCULAR HEMOGLOBIN 31.8 pg (27.0-33.0); MEAN CORPUSCULAR VOLUME 96.4 fl (80.0-96.0); PLATELET COUNT, AUTOMATED 307 10^3/uL (150-450); RED BLOOD COUNT 3.58 10^6/uL (4.30-6.10); WHITE BLOOD COUNT 6.6 10^3/uL (4.0-10.0)
[2022-05-11 09:31] LABS: ALBUMIN 3.2 GM/DL (3.2-5.2); ALT/SGPT 29 U/L (12-78); BLOOD UREA NITROGEN 18 MG/DL (7-18); CALCIUM LEVEL 10.1 MG/DL (8.8-10.2); CARBON DIOXIDE LEVEL 27 MEQ/L (21-32); CHLORIDE LEVEL 101 MEQ/L (98-107); CREATININE FOR GFR 0.95 MG/DL (0.70-1.30); GLOMERULAR FILTRATION RATE > 60.0 (>42); GLUCOSE, FASTING 117 MG/DL (70-100); POTASSIUM SERUM 3.8 MEQ/L (3.5-5.1); SODIUM LEVEL 135 MEQ/L (136-145); TOTAL PROTEIN 6.2 GM/DL (6.4-8.2)
[2022-05-11 14:00] VITALS: BP 148/62
[2022-05-11 21:14] VITALS: BP 166/78
[2022-05-11] MEDS: LOPERAMIDE 2 MG CAPLET PO PRN (21:26)
[2022-05-12 06:50] VITALS: BP 169/76
[2022-05-12 08:00] VITALS: BP 134/47
[2022-05-12] MEDS: ENOXAPARIN 40MG/0.4ML SYRINGE (J1650 PER 10MG) SC SCH (09:23)
[2022-05-12] MEDS: POTASSIUM CHLORIDE 10MEQ SR TABLET PO SCH (09:24)
[2022-05-12] MEDS: ATORVASTATIN 20 MG TAB PO SCH (09:24)
[2022-05-12] MEDS: lisinopriL 40MG TAB PO SCH (09:26)
[2022-05-12] MEDS: atenoloL 50 MG TAB PO SCH (09:26)
[2022-05-12] MEDS: ASPIRIN 81MG ENTERIC TABLET PO SCH (09:26)
[2022-05-12] MEDS: LOPERAMIDE 2 MG CAPLET PO PRN ×3 (09:27→20:41)
[2022-05-12] MEDS: ACETAMINOPHEN TAB 650MG DOSE (2X325MG) PO PRN ×2 (09:27→16:26)
[2022-05-12] MEDS: LACTOBACILLUS ACIDOPHILUS CAP (BACID) PO SCH (09:27)
[2022-05-12] MEDS: DOXYCYCLINE HYCLATE 100MG TABLET PO SCH ×2 (09:28→20:39)
[2022-05-12] MEDS: CHLORTHALIDONE 25 MG TAB PO SCH (09:28)
[2022-05-12] MEDS: TAMSULOSIN 0.4 MG CAP PO SCH (09:28)
[2022-05-12] MEDS ORDERED: LISI40TA4 PO (13:21)
[2022-05-12] MEDS ORDERED: CEFD300CAP PO (13:21)
[2022-05-12] MEDS ORDERED: DOXY100T PO (13:21)
[2022-05-12 14:28] VITALS: BP 110/58
[2022-05-13] MEDS: LOPERAMIDE 2 MG CAPLET PO PRN (04:07)
[2022-05-13 06:39] VITALS: BP 168/69
[2022-05-13 07:03] LABS: HEMATOCRIT 32.4 % (42.0-52.0); HEMOGLOBIN 10.9 g/dl (13.5-17.5); MEAN CORPUSCULAR HEMOGLOBIN 32.5 pg (27.0-33.0); MEAN CORPUSCULAR HGB CONC 33.6 g/dl (32.0-36.5); MEAN CORPUSCULAR VOLUME 96.7 fl (80.0-96.0); PLATELET COUNT, AUTOMATED 306 10^3/uL (150-450); RED BLOOD COUNT 3.35 10^6/uL (4.30-6.10); WHITE BLOOD COUNT 5.8 10^3/uL (4.0-10.0)
[2022-05-13 07:43] LABS: ALBUMIN 3.2 GM/DL (3.2-5.2); ALT/SGPT 25 U/L (12-78); BLOOD UREA NITROGEN 30 MG/DL (7-18); CALCIUM LEVEL 9.9 MG/DL (8.8-10.2); CARBON DIOXIDE LEVEL 25 MEQ/L (21-32); CHLORIDE LEVEL 105 MEQ/L (98-107); CREATININE FOR GFR 1.21 MG/DL (0.70-1.30); GLOMERULAR FILTRATION RATE > 60.0 (>42); GLUCOSE, FASTING 97 MG/DL (70-100); MAGNESIUM LEVEL 2.1 MG/DL (1.8-2.4); POTASSIUM SERUM 4.5 MEQ/L (3.5-5.1); SODIUM LEVEL 136 MEQ/L (136-145)
[2022-05-13] MEDS: CHLORTHALIDONE 25 MG TAB PO SCH (09:00)
[2022-05-13] MEDS: ASPIRIN 81MG ENTERIC TABLET PO SCH (09:29)
[2022-05-13] MEDS: ENOXAPARIN 40MG/0.4ML SYRINGE (J1650 PER 10MG) SC SCH (09:29)
[2022-05-13] MEDS: LACTOBACILLUS ACIDOPHILUS CAP (BACID) PO SCH (09:29)
[2022-05-13] MEDS: TAMSULOSIN 0.4 MG CAP PO SCH (09:29)
[2022-05-13] MEDS: POTASSIUM CHLORIDE 10MEQ SR TABLET PO SCH (09:29)
[2022-05-13] MEDS: ATORVASTATIN 20 MG TAB PO SCH (09:30)
[2022-05-13] MEDS: lisinopriL 40MG TAB PO SCH (09:32)
[2022-05-13 09:33] VITALS: BP 134/54
[2022-05-13] MEDS: atenoloL 50 MG TAB PO SCH (09:33)
== END 2022-05-13 15:35 | disposition home health service (06) | DRG 603 ==
LOC: M ED 10:45 → M ED INP 16:21 → ENRESERV 19:47 → M 4MAIN 22:11 → M MS5PR 05-10 16:35
PROVIDERS: ADMIT Family Medicine; ATTEND Family Medicine
DX: L03.115 Cellulitis of right lower limb (principal); A07.2 Cryptosporidiosis; I16.0 Hypertensive urgency; I10 Essential (primary) hypertension; E78.5 Hyperlipidemia, unspecified; J30.9 Allergic rhinitis, unspecified; L27.0 Generalized skin eruption due to drugs and medicaments taken internally; T36.8X5A Adverse effect of other systemic antibiotics, initial encounter; R33.9 Retention of urine, unspecified; Z96.649 Presence of unspecified artificial hip joint; Z96.651 Presence of right artificial knee joint; Z87.891 Personal history of nicotine dependence; Z79.82 Long term (current) use of aspirin; Z79.899 Other long term (current) drug therapy

== ENCOUNTER 2024-04-06 16:52 | Inpatient (IN) | payer OTHER, MEDICARE ==
[~2024-04-06] VITALS: Ht 177.8 cm; Wt 109.9 kg
[~2024-04-06 16:52] MED LIST changes: +ACE65ERTAB PO; +ACET-897 PO; +ASPI-226 PO; +CEFD300CAP PO; +CHOL125C6 PO; +DOXY100T PO; +FLOM0.4C39 PO; +HYDR1OIN12 TOP; +LISI40TA4 PO; +LOPE2CA PO; +SENN-111 PO; -SENN18TA PO
[2024-04-06 22:33] LABS: BASO % 0.5 % (0.0-1.0); EOS % 0.5 % (0.0-3.0); HEMATOCRIT 45.2 % (42.0-52.0); HEMOGLOBIN 15.8 g/dl (13.5-17.5); LYMPH # 1.7 10^3/uL (1.5-5.0); LYMPH % 27.6 % (24.0-44.0); MEAN CORPUSCULAR HEMOGLOBIN 32.8 pg (27.0-33.0); MONO # 0.6 10^3/uL (0.0-0.8); MONO % 9.8 % (2.0-8.0); NEUTROPHILS # 3.7 10^3/uL (1.5-8.5); NEUTROPHILS % 61.3 % (36.0-66.0); PLATELET COUNT, AUTOMATED 195 10^3/uL (150-450); RED BLOOD COUNT 4.81 10^6/uL (4.30-6.10)
[2024-04-06 23:06] LABS: BLOOD UREA NITROGEN 21 MG/DL (9-23); CALCIUM LEVEL 10.4 MG/DL (8.3-10.6); CARBON DIOXIDE LEVEL 25 MMOL/L (20-31); CHLORIDE LEVEL 96 MMOL/L (98-107); CREATININE FOR GFR 1.16 MG/DL (0.70-1.30); GLOMERULAR FILTRATION RATE > 60.0 (>42); GLUCOSE, FASTING 94 MG/DL (74-106); MAGNESIUM LEVEL 2.2 MG/DL (1.8-2.4); POTASSIUM SERUM 4.5 MMOL/L (3.5-5.1); SODIUM LEVEL 128 MMOL/L (136-145)
[2024-04-06 23:35] LABS: OSMOLALITY SERUM 303 MOSM/KG (280-301)
[2024-04-06 23:41] LABS: THYROID STIMULATING HORMONE 3.184 uIU/ML (0.55-4.78)
[2024-04-06] MEDS ORDERED: LISI20TA33 PO ×2 (23:43)
[2024-04-06] MEDS ORDERED: BISO10TA14 PO (23:43)
[2024-04-06] MEDS ORDERED: CHLO125TA PO (23:43)
[2024-04-06] MEDS ORDERED: HOME MED LIST COMPLETE! XX SCH (23:45)
[2024-04-07] VITALS (8 sets, daily range): BP systolic 137–201; BP diastolic 67–105; TEMP 97.9–98.6; O2SAT 96–100
[2024-04-07] MEDS ORDERED: MAALOX 30 ML SUSP *UDC PO PRN (00:15)
[2024-04-07] MEDS ORDERED: MOM 30ML SUSPENSION UDC PO PRN (00:15)
[2024-04-07 01:14] LABS: INR 1.09; PARTIAL THROMBOPLASTIN TIME 26.8 SECONDS (24.8-34.2); PROTHROMBIN TIME 13.8 SECONDS (12.5-14.5)
[2024-04-07] MEDS: hydrALAZINE 20MG/ML 1ML VIAL IV STA (06:54)
[2024-04-07] MEDS: DOCUSATE SODIUM 100MG CAPSULE PO SCH (08:16)
[2024-04-07] MEDS: HEPARIN SOD (PORCINE) 5000UNITS/ML 1ML VIAL/SYRINGE SC SCH (08:20)
[2024-04-07 09:44] LABS: BASO % 0.3 % (0.0-1.0); EOS % 0.5 % (0.0-3.0); HEMATOCRIT 44.4 % (42.0-52.0); HEMOGLOBIN 15.6 g/dl (13.5-17.5); LYMPH # 0.9 10^3/uL (1.5-5.0); LYMPH % 22.3 % (24.0-44.0); MEAN CORPUSCULAR HEMOGLOBIN 32.7 pg (27.0-33.0); MEAN CORPUSCULAR HGB CONC 35.1 g/dl (32.0-36.5); MEAN CORPUSCULAR VOLUME 93.1 fl (80.0-96.0); MONO # 0.4 10^3/uL (0.0-0.8); MONO % 9.5 % (2.0-8.0); NEUTROPHILS # 2.7 10^3/uL (1.5-8.5); NEUTROPHILS % 67.1 % (36.0-66.0); PLATELET COUNT, AUTOMATED 169 10^3/uL (150-450); RED BLOOD COUNT 4.77 10^6/uL (4.30-6.10)
[2024-04-07] MEDS: bisoproloL fumarate 10 MG TAB PO SCH (10:03)
[2024-04-07 10:07] LABS: ALBUMIN 4.4 G/DL (3.2-5.2); ALKALINE PHOSPHATASE 74 U/L (46-116); ALT/SGPT 18 U/L (7.0-40); AST/SGOT 17 U/L (<34); BILIRUBIN,TOTAL 1.2 MG/DL (0.3-1.2); BLOOD UREA NITROGEN 18 MG/DL (9-23); CALCIUM LEVEL 10.4 MG/DL (8.3-10.6); CARBON DIOXIDE LEVEL 24 MMOL/L (20-31); CHLORIDE LEVEL 97 MMOL/L (98-107); CREATININE FOR GFR 1.04 MG/DL (0.70-1.30); GLOMERULAR FILTRATION RATE > 60.0 (>42); GLUCOSE, FASTING 104 MG/DL (74-106); SODIUM LEVEL 128 MMOL/L (136-145)
[2024-04-07 10:16] LABS: OSMOLALITY URINE 400 MOSM/KG (50-1400)
[2024-04-07 10:35] LABS: SODIUM,RANDOM URINE 113 MMOL/L
[2024-04-07] MEDS: NS 1,000 ML IV SCH (11:38)
[2024-04-07 11:48] LABS: VITAMIN B12 LEVEL 768 PG/ML (211-911)
[2024-04-07] MEDS: **hydrALAZINE HCL** 25 MG TAB PO PRN (17:02)
[2024-04-07] MEDS: amLODIPine 5 MG TAB PO SCH (20:30)
[2024-04-07] MEDS: APIXABAN 5 MG TAB (ELIQUIS) PO SCH (20:30)
[2024-04-07] MEDS: ACETAMINOPHEN TAB 650MG DOSE (2X325MG) PO PRN (23:22)
[2024-04-08] VITALS (23 sets, daily range): BP systolic 102–180; BP diastolic 53–77; TEMP 97.2–97.6; O2SAT 94–99
[2024-04-08 00:43] LABS: BLOOD UREA NITROGEN 18 MG/DL (9-23); CALCIUM LEVEL 9.7 MG/DL (8.3-10.6); CARBON DIOXIDE LEVEL 27 MMOL/L (20-31); CHLORIDE LEVEL 98 MMOL/L (98-107); CREATININE FOR GFR 1.16 MG/DL (0.70-1.30); GLOMERULAR FILTRATION RATE > 60.0 (>42); GLUCOSE, FASTING 97 MG/DL (74-106); POTASSIUM SERUM 4.2 MMOL/L (3.5-5.1); SODIUM LEVEL 129 MMOL/L (136-145)
[2024-04-08 06:21] LABS: HEMATOCRIT 41.7 % (42.0-52.0); HEMOGLOBIN 14.3 g/dl (13.5-17.5); MEAN CORPUSCULAR HEMOGLOBIN 32.6 pg (27.0-33.0); MEAN CORPUSCULAR HGB CONC 34.3 g/dl (32.0-36.5); MEAN CORPUSCULAR VOLUME 95.2 fl (80.0-96.0); PLATELET COUNT, AUTOMATED 165 10^3/uL (150-450); RED BLOOD COUNT 4.38 10^6/uL (4.30-6.10); WHITE BLOOD COUNT 4.5 10^3/uL (4.0-10.0)
[2024-04-08 06:48] LABS: PROCALCITONIN 0.04 ng/ml
[2024-04-08 06:50] LABS: ALBUMIN 3.7 G/DL (3.2-5.2); ALKALINE PHOSPHATASE 67 U/L (46-116); ALT/SGPT 14 U/L (7.0-40); AST/SGOT 14 U/L (<34); BILIRUBIN,TOTAL 1.1 MG/DL (0.3-1.2); BLOOD UREA NITROGEN 18 MG/DL (9-23); CALCIUM LEVEL 9.6 MG/DL (8.3-10.6); CARBON DIOXIDE LEVEL 26 MMOL/L (20-31); CHLORIDE LEVEL 99 MMOL/L (98-107); CHOLESTEROL LEVEL 142 MG/DL (<200); CHOLESTEROL RISK RATIO 4.32 (<5); CREATININE FOR GFR 1.19 MG/DL (0.70-1.30); GLOMERULAR FILTRATION RATE > 60.0 (>42); GLUCOSE, FASTING 91 MG/DL (74-106); HDL CHOLESTEROL 32.8 MG/DL (>40); MAGNESIUM LEVEL 1.8 MG/DL (1.8-2.4); NON-HDL-C 109.2 MG/DL; POTASSIUM SERUM 4.2 MMOL/L (3.5-5.1); SODIUM LEVEL 130 MMOL/L (136-145); TRIGLYCERIDES LEVEL 96 MG/DL (<150)
[2024-04-08] MEDS ORDERED: lisinopriL 40MG TAB PO SCH (09:00)
[2024-04-08] MEDS: **hydrALAZINE HCL** 25 MG TAB PO SCH (09:25)
[2024-04-08 11:13] LABS: APPEARANCE, URINE HAZY (CLEAR); BACTERIA, URINE AUTO NEGATIVE (NEGATIVE); BILIRUBIN, URINE AUTO NEGATIVE (NEGATIVE); BLOOD, URINE BLOOD NEGATIVE (NEGATIVE); COLOR, URINE YELLOW (YELLOW); GLUCOSE, URINE (UA) AUTO NEGATIVE (NEGATIVE); KETONE, URINE AUTO NEGATIVE (NEGATIVE); LEUKOCYTE ESTERASE, URINE AUTO NEGATIVE (NEGATIVE); NITRITE, URINE AUTO NEGATIVE (NEGATIVE); PROTEIN, URINE AUTO NEGATIVE (NEGATIVE); RBC, URINE AUTO 50 /HPF (0-3); SPECIFIC GRAVITY URINE AUTO 1.011 (1.002-1.035); SQUAMOUS EPITHELIAL CELL UR AU 0 /HPF (0-6); UROBILINOGEN, URINE AUTO 0.2 mg/dL (0.0-2.0); WBC, URINE AUTO 1 /HPF (0-3)
[2024-04-08] MEDS: **hydrALAZINE HCL** 25 MG TAB PO ONE (13:22)
[2024-04-09] VITALS (32 sets, daily range): BP systolic 130–198; BP diastolic 64–84; TEMP 97.1–98.1; O2SAT 90–99
[2024-04-09 03:27] LABS: PROTEIN, TOTAL SO 7.4 g/dL (6.1-8.1)
[2024-04-09 06:13] LABS: BASO % 0.4 % (0.0-1.0); EOS % 0.6 % (0.0-3.0); HEMATOCRIT 42.7 % (42.0-52.0); LYMPH # 1.1 10^3/uL (1.5-5.0); LYMPH % 23.8 % (24.0-44.0); MEAN CORPUSCULAR HGB CONC 35.1 g/dl (32.0-36.5); MEAN CORPUSCULAR VOLUME 93.8 fl (80.0-96.0); MONO # 0.5 10^3/uL (0.0-0.8); MONO % 10.7 % (2.0-8.0); NEUTROPHILS # 3.1 10^3/uL (1.5-8.5); NEUTROPHILS % 64.3 % (36.0-66.0); PLATELET COUNT, AUTOMATED 189 10^3/uL (150-450); RED BLOOD COUNT 4.55 10^6/uL (4.30-6.10); WHITE BLOOD COUNT 4.8 10^3/uL (4.0-10.0)
[2024-04-09 06:34] LABS: BLOOD UREA NITROGEN 16 MG/DL (9-23); CARBON DIOXIDE LEVEL 26 MMOL/L (20-31); CHLORIDE LEVEL 97 MMOL/L (98-107); CREATININE FOR GFR 1.14 MG/DL (0.70-1.30); GLOMERULAR FILTRATION RATE > 60.0 (>42); GLUCOSE, FASTING 95 MG/DL (74-106); POTASSIUM SERUM 4.3 MMOL/L (3.5-5.1); SODIUM LEVEL 129 MMOL/L (136-145)
[2024-04-09] MEDS: NS 1,000 ML IV SCH (09:38)
[2024-04-09] MEDS: SODIUM CHLORIDE 1 GM TAB PO SCH (09:38)
[2024-04-09 12:41] LABS: BLOOD UREA NITROGEN 15 MG/DL (9-23); CALCIUM LEVEL 10.5 MG/DL (8.3-10.6); CARBON DIOXIDE LEVEL 23 MMOL/L (20-31); CHLORIDE LEVEL 98 MMOL/L (98-107); CREATININE FOR GFR 1.03 MG/DL (0.70-1.30); GLOMERULAR FILTRATION RATE > 60.0 (>42); GLUCOSE, FASTING 91 MG/DL (74-106); POTASSIUM SERUM 4.3 MMOL/L (3.5-5.1); SODIUM LEVEL 129 MMOL/L (136-145)
[2024-04-09] MEDS ORDERED: ELIQ5TAB PO (15:06)
[2024-04-09] MEDS: RAMELTEON 8 MG TAB (ROZEREM) PO SCH (21:17)
[2024-04-10] VITALS (29 sets, daily range): BP systolic 108–174; BP diastolic 54–90; TEMP 96.8–97.7; O2SAT 94–98
[2024-04-10 06:08] LABS: BASO % 0.2 % (0.0-1.0); EOS % 0.4 % (0.0-3.0); HEMATOCRIT 42.6 % (42.0-52.0); LYMPH # 1.1 10^3/uL (1.5-5.0); LYMPH % 20.6 % (24.0-44.0); MEAN CORPUSCULAR HEMOGLOBIN 33.5 pg (27.0-33.0); MEAN CORPUSCULAR HGB CONC 35.2 g/dl (32.0-36.5); MEAN CORPUSCULAR VOLUME 95.1 fl (80.0-96.0); MONO # 0.6 10^3/uL (0.0-0.8); MONO % 10.6 % (2.0-8.0); NEUTROPHILS # 3.6 10^3/uL (1.5-8.5); NEUTROPHILS % 67.6 % (36.0-66.0); PLATELET COUNT, AUTOMATED 179 10^3/uL (150-450); RED BLOOD COUNT 4.48 10^6/uL (4.30-6.10); WHITE BLOOD COUNT 5.3 10^3/uL (4.0-10.0)
[2024-04-10 06:21] LABS: BLOOD UREA NITROGEN 16 MG/DL (9-23); CALCIUM LEVEL 10.3 MG/DL (8.3-10.6); CARBON DIOXIDE LEVEL 25 MMOL/L (20-31); CHLORIDE LEVEL 98 MMOL/L (98-107); GLOMERULAR FILTRATION RATE > 60.0 (>42); GLUCOSE, FASTING 100 MG/DL (74-106); MAGNESIUM LEVEL 1.8 MG/DL (1.8-2.4); POTASSIUM SERUM 3.9 MMOL/L (3.5-5.1); SODIUM LEVEL 128 MMOL/L (136-145)
[2024-04-10 07:50] LABS: ALBUMIN SO 4.6 g/dL (3.8-4.8); ALPHA 1 GLOBULINS SO 0.3 g/dL (0.2-0.3); ALPHA 2 GLOBULINS SO 0.8 g/dL (0.5-0.9); BETA 2 GLOBULIN SO 0.4 g/dL (0.2-0.5); BETA GLOBULIN SO 0.4 g/dL (0.4-0.6); GAMMA GLOBULINS SO 0.9 g/dL (0.8-1.7)
[2024-04-10] MEDS: TOLVAPTAN 7.5 MG HALF-TAB PO ONE (11:42)
[2024-04-10 15:02] LABS: BLOOD UREA NITROGEN 17 MG/DL (9-23); CALCIUM LEVEL 10.7 MG/DL (8.3-10.6); CARBON DIOXIDE LEVEL 26 MMOL/L (20-31); CHLORIDE LEVEL 96 MMOL/L (98-107); CREATININE FOR GFR 1.04 MG/DL (0.70-1.30); GLOMERULAR FILTRATION RATE > 60.0 (>42); GLUCOSE, FASTING 108 MG/DL (74-106); SODIUM LEVEL 128 MMOL/L (136-145)
[2024-04-10] MEDS: amLODIPine 5 MG TAB PO SCH (20:58)
[2024-04-10 22:00] LABS: CREATININE FOR GFR 1.42 MG/DL (0.70-1.30); GLOMERULAR FILTRATION RATE 51.3 (>42); POTASSIUM SERUM 3.7 MMOL/L (3.5-5.1)
[2024-04-11] VITALS (11 sets, daily range): BP systolic 144–146; BP diastolic 68–70; TEMP 97.5; O2SAT 95–98
[2024-04-11 05:38] LABS: BASO % 0.2 % (0.0-1.0); EOS % 0.8 % (0.0-3.0); HEMATOCRIT 43.8 % (42.0-52.0); LYMPH # 1.1 10^3/uL (1.5-5.0); LYMPH % 23.1 % (24.0-44.0); MEAN CORPUSCULAR HEMOGLOBIN 32.5 pg (27.0-33.0); MEAN CORPUSCULAR HGB CONC 34.2 g/dl (32.0-36.5); MEAN CORPUSCULAR VOLUME 94.8 fl (80.0-96.0); MONO # 0.5 10^3/uL (0.0-0.8); MONO % 10.8 % (2.0-8.0); NEUTROPHILS # 3.2 10^3/uL (1.5-8.5); NEUTROPHILS % 64.7 % (36.0-66.0); PLATELET COUNT, AUTOMATED 158 10^3/uL (150-450); RED BLOOD COUNT 4.62 10^6/uL (4.30-6.10); WHITE BLOOD COUNT 4.9 10^3/uL (4.0-10.0)
[2024-04-11 06:16] LABS: BLOOD UREA NITROGEN 21 MG/DL (9-23); CALCIUM LEVEL 10.3 MG/DL (8.3-10.6); CARBON DIOXIDE LEVEL 26 MMOL/L (20-31); CHLORIDE LEVEL 98 MMOL/L (98-107); GLOMERULAR FILTRATION RATE > 60.0 (>42); GLUCOSE, FASTING 96 MG/DL (74-106); MAGNESIUM LEVEL 1.9 MG/DL (1.8-2.4); POTASSIUM SERUM 4.7 MMOL/L (3.5-5.1); SODIUM LEVEL 132 MMOL/L (136-145)
[2024-04-11] MEDS ORDERED: HYDR25TA87 PO (08:17)
[2024-04-11] MEDS ORDERED: AMLO1TAB24 PO (08:17)
== END 2024-04-11 12:07 | disposition home health service (06) | DRG 641 ==
LOC: M ED 16:52 → M ED INP 16:53 → M MS5PR 04-07 08:30 → M PCU 04-07 21:28 → OBSVTOIN 04-08 08:52
PROVIDERS: ADMIT Family Medicine; ATTEND Internal Medicine
PROC: B246ZZZ Ultrasonography of Right and Left Heart (ICD-10-PCS; principal; 2024-04-08)
DX: E87.1 Hypo-osmolality and hyponatremia (principal); I50.32 Chronic diastolic (congestive) heart failure; I11.0 Hypertensive heart disease with heart failure; E78.5 Hyperlipidemia, unspecified; M19.90 Unspecified osteoarthritis, unspecified site; J30.1 Allergic rhinitis due to pollen; R53.1 Weakness; R53.81 Other malaise; I48.91 Unspecified atrial fibrillation; R00.1 Bradycardia, unspecified; I95.1 Orthostatic hypotension; R42 Dizziness and giddiness; Z95.0 Presence of cardiac pacemaker; Z96.651 Presence of right artificial knee joint; Z87.891 Personal history of nicotine dependence; Z79.899 Other long term (current) drug therapy

== ENCOUNTER → 2024-06-25 | Outpatient (CLI) | payer OTHER ==
[~2024-06-25] MED LIST changes: +AMLO1TAB24 PO; +BISO10TA14 PO; +CHLO125TA PO; +ELIQ5TAB PO; +HYDR25TA87 PO; -SENN-111 PO; +SENN-165 PO
== END ==
LOC: M RAD 10:00
PROVIDERS: ATTEND Nurse Practitioner Family
DX: R79.89 Other specified abnormal findings of blood chemistry (principal)

== ENCOUNTER 2024-11-18 11:54 | Emergency (ER) | payer MEDICARE, OTHER ==
[~2024-11-18] VITALS: Ht 177.8 cm; Wt 108.0 kg
[2024-11-18 13:38] LABS: BASO % 0.3 % (0.0-1.0); EOS % 0.5 % (0.0-3.0); HEMATOCRIT 49.9 % (42.0-52.0); HEMOGLOBIN 17.2 g/dl (13.5-17.5); LYMPH # 1.4 10^3/uL (1.5-5.0); LYMPH % 22.3 % (24.0-44.0); MEAN CORPUSCULAR HEMOGLOBIN 32.6 pg (27.0-33.0); MEAN CORPUSCULAR HGB CONC 34.5 g/dl (32.0-36.5); MEAN CORPUSCULAR VOLUME 94.5 fl (80.0-96.0); MONO # 0.4 10^3/uL (0.0-0.8); MONO % 6.9 % (2.0-8.0); NEUTROPHILS # 4.5 10^3/uL (1.5-8.5); NEUTROPHILS % 69.8 % (36.0-66.0); PLATELET COUNT, AUTOMATED 182 10^3/uL (150-450); RED BLOOD COUNT 5.28 10^6/uL (4.30-6.10); WHITE BLOOD COUNT 6.4 10^3/uL (4.0-10.0)
[2024-11-18 13:52] LABS: INR 1.11; PARTIAL THROMBOPLASTIN TIME 31.4 SECONDS (24.8-34.2); PROTHROMBIN TIME 14.7 SECONDS (12.5-14.5)
[2024-11-18 13:53] VITALS: TEMP 98.7
[2024-11-18 14:10] LABS: LIPASE 38 U/L (12-53)
[2024-11-18 14:12] LABS: CPK CREATINE PHOSPHOKINASE 52 U/L (46-171)
[2024-11-18 14:33] LABS: ALBUMIN 4.2 G/DL (3.2-5.2); ALKALINE PHOSPHATASE 77 U/L (40-129); ALT/SGPT 17 U/L (7.0-40); AST/SGOT 22 U/L (<34); BILIRUBIN,DIRECT 0.4 MG/DL (<0.4); BILIRUBIN,TOTAL 1.4 MG/DL (0.3-1.2); BLOOD UREA NITROGEN 34 MG/DL (9-23); CALCIUM LEVEL 11.1 MG/DL (8.3-10.6); CARBON DIOXIDE LEVEL 23 MMOL/L (20-31); CHLORIDE LEVEL 105 MMOL/L (98-107); CK-MB VALUE MASS < 1.0 NG/ML (<3.6); CREATININE FOR GFR 1.34 MG/DL (0.70-1.30); FREE T4 1.22 NG/DL (0.89-1.76); GLOMERULAR FILTRATION RATE 54.7 (>42); GLUCOSE, FASTING 96 MG/DL (74-106); MB/CK RELATIVE INDEX 1.92 (< OR =4); POTASSIUM SERUM 4.4 MMOL/L (3.5-5.1); SODIUM LEVEL 137 MMOL/L (136-145); THYROID STIMULATING HORMONE 2.189 uIU/ML (0.55-4.78); TOTAL PROTEIN 7.3 G/DL (5.7-8.2)
[2024-11-18] MEDS ORDERED: LISI2.5T9 PO (14:35)
[2024-11-18] MEDS ORDERED: BISO5TAB14 PO (14:35)
[2024-11-18] MEDS ORDERED: BUME1TAB3 (14:35)
[2024-11-18] MEDS ORDERED: B-122500 PO (14:35)
[2024-11-18] MEDS ORDERED: JARD1TAB PO (14:35)
[2024-11-18 17:52] VITALS: BP 151/71; O2SAT 94
== END 2024-11-18 17:57 | disposition home or self-care (01) ==
LOC: M ED 11:54
DX: I10 Essential (primary) hypertension (principal); I48.91 Unspecified atrial fibrillation; Z91.09 Other allergy status, other than to drugs and biological substances; Z79.01 Long term (current) use of anticoagulants; Z79.4 Long term (current) use of insulin; Z79.899 Other long term (current) drug therapy

== ENCOUNTER 2025-01-26 11:23 | Emergency (ER) | payer OTHER ==
[~2025-01-26] VITALS: Ht 177.8 cm; Wt 110.9 kg
[~2025-01-26 11:23] MED LIST changes: +B-122500 PO; +BISO5TAB14 PO; +BUME1TAB3; -FLOM0.4C39 PO; +JARD1TAB PO; +LISI2.5T9 PO; +TAMS-18 PO
[2025-01-26] MEDS ORDERED: ASPI-226 (11:39)
[2025-01-26] MEDS ORDERED: CLOP75TA2 (11:39)
[2025-01-26 13:37] LABS: BASO % 0.1 % (0.0-1.0); EOS # 0.1 10^3/uL (0.0-0.5); EOS % 1.1 % (0.0-3.0); HEMATOCRIT 48.3 % (42.0-52.0); HEMOGLOBIN 16.6 g/dl (13.5-17.5); LYMPH # 1.2 10^3/uL (1.5-5.0); LYMPH % 15.8 % (24.0-44.0); MEAN CORPUSCULAR HEMOGLOBIN 32.3 pg (27.0-33.0); MEAN CORPUSCULAR HGB CONC 34.4 g/dl (32.0-36.5); MONO # 0.6 10^3/uL (0.0-0.8); NEUTROPHILS # 5.5 10^3/uL (1.5-8.5); NEUTROPHILS % 74.7 % (36.0-66.0); PLATELET COUNT, AUTOMATED 188 10^3/uL (150-450); RED BLOOD COUNT 5.14 10^6/uL (4.30-6.10); WHITE BLOOD COUNT 7.3 10^3/uL (4.0-10.0)
[2025-01-26 13:41] LABS: ERYTHROCYTE SEDIMENTATION RATE 38 mm/hr (0-20)
[2025-01-26 14:09] LABS: C REACTIVE PROTEIN QUANTITATIV 0.66 MG/DL (<1.0)
[2025-01-26 14:14] LABS: CREATININE FOR GFR 1.41 MG/DL (0.70-1.30); GLOMERULAR FILTRATION RATE 50.7 (>42); URIC ACID 9.6 MG/DL (3.7-9.2)
[2025-01-26] MEDS ORDERED: NEUR100C PO (15:19)
[2025-01-26] MEDS ORDERED: PRED10TA2 PO (15:19)
[2025-01-26] MEDS: predniSONE 20 MG TAB PO ONE (15:40)
[2025-01-26] MEDS: GABAPENTIN 100 MG CAP PO ONE (15:40)
[2025-01-26 15:44] VITALS: BP 160/67; O2SAT 92
[2025-01-26 15:49] VITALS: TEMP 97.8
== END 2025-01-26 15:51 | disposition home or self-care (01) ==
LOC: M ED 11:23
DX: M10.071 Idiopathic gout, right ankle and foot (principal); M79.671 Pain in right foot; I11.0 Hypertensive heart disease with heart failure; I50.22 Chronic systolic (congestive) heart failure; F17.210 Nicotine dependence, cigarettes, uncomplicated; Z91.09 Other allergy status, other than to drugs and biological substances; Z79.1 Long term (current) use of non-steroidal anti-inflammatories (NSAID); Z79.52 Long term (current) use of systemic steroids; Z79.899 Other long term (current) drug therapy
CPT/HCPCS: 36415; 73610; 73630; 80048; 82607; 83880; 84550; 85025; 85652; 86140; 93971; 99284; J7512

== ENCOUNTER 2025-02-18 12:49 | Inpatient (IN) | payer OTHER ==
[~2025-02-18] VITALS: Ht 177.8 cm; Wt 110.3 kg
[~2025-02-18 12:49] MED LIST changes: -BUME1TAB3; +BUME1TAB3 PO; +CLOP75TA2 PO; +NEUR100C PO; +PRED10TA2 PO
[2025-02-18] MEDS: BACITRACIN OINTMENT 30GM TUBE TOP ONE (13:25)
[2025-02-18 13:54] LABS: BASO % 0.2 % (0.0-1.0); EOS # 0.1 10^3/uL (0.0-0.5); EOS % 2.8 % (0.0-3.0); HEMATOCRIT 44.2 % (42.0-52.0); HEMOGLOBIN 15.2 g/dl (13.5-17.5); LYMPH # 0.8 10^3/uL (1.5-5.0); LYMPH % 16.1 % (24.0-44.0); MEAN CORPUSCULAR HEMOGLOBIN 31.7 pg (27.0-33.0); MEAN CORPUSCULAR HGB CONC 34.4 g/dl (32.0-36.5); MEAN CORPUSCULAR VOLUME 92.1 fl (80.0-96.0); MONO # 0.5 10^3/uL (0.0-0.8); MONO % 9.4 % (2.0-8.0); NEUTROPHILS # 3.5 10^3/uL (1.5-8.5); NEUTROPHILS % 71.1 % (36.0-66.0); PLATELET COUNT, AUTOMATED 156 10^3/uL (150-450)
[2025-02-18 14:06] LABS: INR 0.96; PROTHROMBIN TIME 13.1 SECONDS (12.5-14.5)
[2025-02-18 14:23] LABS: CK-MB VALUE MASS < 1.0 NG/ML (<3.6)
[2025-02-18 14:26] LABS: ALBUMIN 3.8 G/DL (3.2-5.2); ALKALINE PHOSPHATASE 65 U/L (40-129); ALT/SGPT 19 U/L (7.0-40); AST/SGOT 21 U/L (<34); BILIRUBIN,DIRECT 0.3 MG/DL (<0.4); BLOOD UREA NITROGEN 26 MG/DL (9-23); CALCIUM LEVEL 9.9 MG/DL (8.3-10.6); CARBON DIOXIDE LEVEL 22 MMOL/L (20-31); CHLORIDE LEVEL 105 MMOL/L (98-107); GLOMERULAR FILTRATION RATE 61.5 (>42); GLUCOSE, FASTING 92 MG/DL (74-106); POTASSIUM SERUM 4.1 MMOL/L (3.5-5.1); SODIUM LEVEL 140 MMOL/L (136-145); TOTAL PROTEIN 6.5 G/DL (5.7-8.2)
[2025-02-18] MEDS ORDERED: BISO10TA14 PO (14:27)
[2025-02-18] MEDS ORDERED: FERR324T21 PO (14:27)
[2025-02-18] MEDS ORDERED: JARD1TAB PO (14:27)
[2025-02-18] MEDS ORDERED: MITI1CAP PO (14:27)
[2025-02-18] MEDS ORDERED: LISI5TAB11 PO (14:27)
[2025-02-18 14:28] LABS: THYROID STIMULATING HORMONE 1.273 uIU/ML (0.55-4.78)
[2025-02-18] MEDS ORDERED: HOME MED LIST COMPLETE! XX SCH (14:30)
[2025-02-18] MEDS ORDERED: ISOVUE-370 76% 100ML VIAL As Ordered ONE (14:31)
[2025-02-18 14:34] LABS: CPK CREATINE PHOSPHOKINASE 42 U/L (46-171); MB/CK RELATIVE INDEX 2.38 (< OR =4)
[2025-02-18 15:13] VITALS: O2SAT 84
[2025-02-18 15:41] LABS: CK-MB VALUE MASS < 1.0 NG/ML (<3.6); CPK CREATINE PHOSPHOKINASE 41 U/L (46-171); MB/CK RELATIVE INDEX 2.43 (< OR =4)
[2025-02-18] MEDS ORDERED: ACETAMINOPHEN 325 MG TAB PO PRN (17:05)
[2025-02-18] MEDS ORDERED: MOM 30ML SUSPENSION UDC PO PRN (17:05)
[2025-02-18] MEDS ORDERED: MAALOX 30 ML SUSP *UDC PO PRN (17:05)
[2025-02-18 18:06] VITALS: BP 176/78; TEMP 97.9; O2SAT 98
[2025-02-18] MEDS: FUROSEMIDE 40MG/4ML VIAL IV ONE (18:34)
[2025-02-18 20:25] VITALS: BP 130/58; TEMP 97.7; O2SAT 95
[2025-02-18] MEDS: bisoproloL fumarate 10 MG TAB PO SCH (21:16)
[2025-02-18 21:17] VITALS: BP 130/58
[2025-02-18] MEDS: HEPARIN SOD 5000UNITS/ML 1ML VIAL/SYRINGE SC SCH (21:17)
[2025-02-18] MEDS: lisinopriL 5 MG TAB PO SCH (21:17)
[2025-02-19 04:00] VITALS: BP 166/81; TEMP 98.4; O2SAT 96
[2025-02-19 06:45] LABS: CALCIUM LEVEL 10.4 MG/DL (8.3-10.6); CREATININE FOR GFR 1.26 MG/DL (0.70-1.30); MAGNESIUM LEVEL 2.4 MG/DL (1.8-2.4)
[2025-02-19 07:52] VITALS: O2SAT 96
[2025-02-19] MEDS: FERROUS GLUCONATE 324 MG TAB PO SCH (08:06)
[2025-02-19] MEDS: ASPIRIN 81MG ENTERIC TABLET PO SCH (08:07)
[2025-02-19] MEDS: CYANOCOBALAMIN 500 MCG TAB PO SCH (08:07)
[2025-02-19 08:10] VITALS: BP 98/50
[2025-02-19] MEDS: FUROSEMIDE 40MG/4ML VIAL IV SCH (08:39)
[2025-02-19 12:00] VITALS: BP 140/70; TEMP 98.1; O2SAT 94
== END 2025-02-19 14:05 | disposition home or self-care (01) | DRG 291 ==
LOC: M ED 12:49 → M ED INP 17:05 → M MSPAV 18:06
PROVIDERS: ADMIT Student in an Organized Health Care Education/Training Program; ATTEND Student in an Organized Health Care Education/Training Program
DX: I11.0 Hypertensive heart disease with heart failure (principal); I50.33 Acute on chronic diastolic (congestive) heart failure; E78.5 Hyperlipidemia, unspecified; M10.9 Gout, unspecified; M19.90 Unspecified osteoarthritis, unspecified site; I48.91 Unspecified atrial fibrillation; Z96.649 Presence of unspecified artificial hip joint; Z96.651 Presence of right artificial knee joint; Z87.891 Personal history of nicotine dependence; Z79.82 Long term (current) use of aspirin; Z79.899 Other long term (current) drug therapy

== ENCOUNTER 2025-09-23 09:56 | Emergency (ER) | payer OTHER ==
[~2025-09-23] VITALS: Ht 177.8 cm; Wt 109.1 kg
[2025-09-23 10:00] VITALS: BP 148/68; TEMP 96.9; O2SAT 98
== END 2025-09-23 11:52 | disposition left against medical advice (07) ==
LOC: M ED 09:56
DX: Z53.21 Procedure and treatment not carried out due to patient leaving prior to being seen by health care provider (principal)

== ENCOUNTER → 2025-09-23 | Outpatient (CLI) | payer OTHER ==
[~2025-09-23] MED LIST changes: -ACE65ERTAB PO; +ACET-1387 PO; +FERR324T21 PO; +LISI40TA10 PO; -LISI40TA4 PO; +LISI5TAB11 PO; +MITI1CAP PO
== END ==
LOC: M RAD 10:46
PROVIDERS: ATTEND Registered Nurse
DX: T82.118A Breakdown (mechanical) of other cardiac electronic device, initial encounter (principal); Y83.1 Surgical operation with implant of artificial internal device as the cause of abnormal reaction of the patient, or of later complication, without mention of misadventure at the time of the procedure